=== PATIENT | female | born 1990 | race Caucasian/White ===

== ENCOUNTER 2017-08-24 09:37 | Emergency (ER) | payer MEDICAID ==
[2017-08-24] MEDS ORDERED: Sodium Chloride 0.9% 1,000 ML IV ONE (10:08)
[2017-08-24] MEDS ORDERED: Sodium Chloride 0.9% 10 ML Syringe FLUSH PRN (10:08)
[2017-08-24] MEDS ORDERED: Sodium Chloride 0.9% 2.5 ML Syringe FLUSH PRN (10:08)
--- NOTE | 2017-08-24 10:08 | EDM.PDOC ---
ED HPI GENERAL MEDICAL PROBLEM - General Chief Complaint: Abdominal Pain Stated Complaint: VAGINAL BLEEDING Time Seen by Provider: 08/24/17 10:04 Source of Information: Reports: Patient History Limitations: Reports: No Limitations - History of Present Illness INITIAL COMMENTS - FREE TEXT/NARRATIVE: HISTORY AND PHYSICAL: History of present illness: Anne is a 27-year-old female here with complaint of vaginal bleeding. Patient states that she hasn't had a period in years but 10 weeks ago took a test which was positive. She was schedule for a new OB appt with Arely Malcolm today but was rescheduled. She states that she started bleeding yesterday and having pelvic cramping. She states she has soaked through 10+ pads. She denies any fevers, chills, cough, chest pain, shortness of breath. Review of systems: As per history of present illness and below otherwise all systems reviewed and negative. Past medical history: As per history of present illness and as reviewed below otherwise noncontributory. Surgical history: As per history of present illness and as reviewed below otherwise noncontributory. Social history: No reported history of drug or alcohol abuse. Family history: As per history of present illness and as reviewed below otherwise noncontributory. Physical exam: General: Patient standing in room pacing but in no acute distress HEENT: Atraumatic, normocephalic, pupils reactive, negative for conjunctival pallor or scleral icterus, mucous membranes moist, throat clear, neck supple, nontender, trachea midline. Lungs: Clear to auscultation, breath sounds equal bilaterally, chest nontender. Heart: S1S2, regular, negative for clicks, rubs, or JVD. Abdomen: Moderated pain to palpation of the lower abdomen/pelvis. Soft, nondistended. No rebound tenderness. Negative for masses or hepatosplenomegaly. Negative for costovertebral tenderness. Genitourinary: OS is closed. There is blood on glove and a clear gel-like substance Neuro: Awake, alert, oriented. Cranial nerves II through XII unremarkable. Cerebellum unremarkable. Motor and sensory unremarkable throughout. Exam nonfocal. Notes: Diagnostics: CBC, CMP, UA, serum quantitative hcg Pelvic US Therapeutics: 1L Normal Saline IV Toradol 60mg IM Impression: Heavy menstrual bleeding UTI Plan: No documented positive hcg. Quant is negative today and no gestational sac on US. #1 Take antibiotic as directed for UTI #2 Follow up with accounts receivable representative #3 Return to ED as needed as discussed Definitive disposition and diagnosis as appropriate pending reevaluation and review of above. Abdominal Pain Score (Numeric/FACES): 6 - Related Data Allergies Allergy/AdvReac Type Severity Reaction Status Date / Time Penicillins Allergy Other Verified 08/24/17 10:13 Home Meds: Home Meds Nitrofurantoin Monohyd/M-Cryst [Macrobid 100 mg Capsule] 100 mg PO BID #14 capsule 08/24/17 [Rx] ED ROS GENERAL - Review of Systems Review Of Systems: ROS reveals no pertinent complaints other than HPI. ED EXAM, RENAL/ - Physical Exam Exam: See Below (see dictation) Course - Vital Signs Last Recorded V/S: Last Vital Signs Temp 36.6 C 08/24/17 10:13 Pulse 106 H 08/24/17 10:13 Resp 16 08/24/17 10:13 BP 126/99 H 08/24/17 10:13 Pulse Ox 98 08/24/17 10:13 - Orders/Labs/Meds Orders: Active Orders 24 hr Category Date Time Status ABO/RH TYPE [BBK] Stat Lab 08/24/17 12:14 Ordered HCG QUALITATIVE,URINE [URCHEM] Stat Lab 08/24/17 12:00 Ordered UA W/MICROSCOPIC [URIN] Stat Lab 08/24/17 12:00 Ordered Labs: Laboratory Tests 08/24/17 08/24/17 08/24/17 Range/Units 10:26 10:26 10:26 WBC 8.75 (4.0-11.0) K/uL RBC 4.58 (4.30-5.90) M/uL Hgb 13.7 (12.0-16.0) g/dL Hct 39.3 (36.0-46.0) % MCV 85.8 (80.0-98.0) fL MCH 29.9 (27.0-32.0) pg MCHC 34.9 (31.0-37.0) g/dL RDW Std Deviation 42.8 (28.0-62.0) fl RDW Coeff of Nigel 14 (11.0-15.0) % Plt Count 278 (150-400) K/uL MPV 9.20 (7.40-12.00) fL Neut % (Auto) 58.1 (48.0-80.0) % Lymph % (Auto) 28.9 (16.0-40.0) % [place] % (Auto) 11.9 (0.0-15.0) % Eos % (Auto) 0.9 (0.0-7.0) % Baso % (Auto) 0.2 (0.0-1.5) % Neut # (Auto) 5.1 (1.4-5.7) K/uL Lymph # (Auto) 2.5 H (0.6-2.4) K/uL [place] # (Auto) 1.0 H (0.0-0.8) K/uL Eos # (Auto) 0.1 (0.0-0.7) K/uL Baso # (Auto) 0.0 (0.0-0.1) K/uL Nucleated RBC % 0.0 /100WBC Nucleated RBCs # 0 K/uL Sodium 141 (136-145) mmol/L Potassium 3.6 (3.5-5.1) mmol/L Chloride 106 (98-107) mmol/L Carbon Dioxide 26.0 (21.0-32.0) mmol/L BUN 12 (7.0-18.0) mg/dL Creatinine 0.8 (0.6-1.0) mg/dL Est Cr Clr Drug Dosing 85.02 mL/min Estimated GFR (MDRD) > 60.0 ml/min Glucose 89 (74-106) mg/dL Calcium 9.3 (8.5-10.1) mg/dL Total Bilirubin 1.1 H (0.2-1.0) mg/dL AST 30 (15-37) IU/L ALT 45 (14-63) IU/L Alkaline Phosphatase 60 (46-116) U/L Total Protein 8.0 (6.4-8.2) g/dL Albumin 4.2 (3.4-5.0) g/dL Globulin 3.8 H (2.0-3.5) g/dL Albumin/Globulin Ratio 1.1 L (1.3-2.8) HCG, Quant < 1.0 mIU/mL Urine Color Urine Appearance Urine pH (5.0-8.0) Ur Specific [place] (1.001-1.035) Urine Protein (NEGATIVE) mg/dL Urine Glucose (UA) (NEGATIVE) mg/dL Urine Ketones (NEGATIVE) mg/dL Urine Occult Blood (NEGATIVE) Urine Nitrite (NEGATIVE) Urine Bilirubin (NEGATIVE) Urine Urobilinogen (<2.0) EU/dL Ur Leukocyte Esterase (NEGATIVE) Urine RBC (0-2/HPF) Urine WBC (0-5/HPF) Ur Epithelial Cells (NONE-FEW) Urine Bacteria (NEGATIVE) Urine HCG, Qual (NEGATIVE) 08/24/17 08/24/17 Range/Units 12:00 12:00 WBC (4.0-11.0) K/uL RBC (4.30-5.90) M/uL Hgb (12.0-16.0) g/dL Hct (36.0-46.0) % MCV (80.0-98.0) fL MCH (27.0-32.0) pg MCHC (31.0-37.0) g/dL RDW Std Deviation (28.0-62.0) fl RDW Coeff of Nigel (11.0-15.0) % Plt Count (150-400) K/uL MPV (7.40-12.00) fL Neut % (Auto) (48.0-80.0) % Lymph % (Auto) (16.0-40.0) % [place] % (Auto) (0.0-15.0) % Eos % (Auto) (0.0-7.0) % Baso % (Auto) (0.0-1.5) % Neut # (Auto) (1.4-5.7) K/uL Lymph # (Auto) (0.6-2.4) K/uL [place] # (Auto) (0.0-0.8) K/uL Eos # (Auto) (0.0-0.7) K/uL Baso # (Auto) (0.0-0.1) K/uL Nucleated RBC % /100WBC Nucleated RBCs # K/uL Sodium (136-145) mmol/L Potassium (3.5-5.1) mmol/L Chloride (98-107) mmol/L Carbon Dioxide (21.0-32.0) mmol/L BUN (7.0-18.0) mg/dL Creatinine (0.6-1.0) mg/dL Est Cr Clr Drug Dosing mL/min Estimated GFR (MDRD) ml/min Glucose (74-106) mg/dL Calcium (8.5-10.1) mg/dL Total Bilirubin (0.2-1.0) mg/dL AST (15-37) IU/L ALT (14-63) IU/L Alkaline Phosphatase (46-116) U/L Total Protein (6.4-8.2) g/dL Albumin (3.4-5.0) g/dL Globulin (2.0-3.5) g/dL Albumin/Globulin Ratio (1.3-2.8) HCG, Quant mIU/mL Urine Color YELLOW Urine Appearance CLEAR Urine pH 7.0 (5.0-8.0) Ur Specific [place] 1.020 (1.001-1.035) Urine Protein NEGATIVE (NEGATIVE) mg/dL Urine Glucose (UA) NEGATIVE (NEGATIVE) mg/dL Urine Ketones NEGATIVE (NEGATIVE) mg/dL Urine Occult Blood LARGE H (NEGATIVE) Urine Nitrite POSITIVE H (NEGATIVE) Urine Bilirubin NEGATIVE (NEGATIVE) Urine Urobilinogen 0.2 (<2.0) EU/dL Ur Leukocyte Esterase TRACE (NEGATIVE) Urine RBC 20-25 (0-2/HPF) Urine WBC 1-3 (0-5/HPF) Ur Epithelial Cells FEW (NONE-FEW) Urine Bacteria 1+ H (NEGATIVE) Urine HCG, Qual NEGATIVE (NEGATIVE) Meds: Medications Discontinued Medications Generic Name Dose Route Start Last Admin Trade Name Freq PRN Reason Stop Dose Admin Sodium Chloride 1,000 mls @ 999 mls/hr 08/24/17 10:08 08/24/17 11:07 Normal Saline IV 08/24/17 11:08 Not Given STAT ONE Ketorolac Tromethamine 60 mg 08/24/17 12:03 08/24/17 12:11 Toradol IM 08/24/17 12:04 60 mg ONETIME ONE Administration Sodium Chloride 10 ml 08/24/17 10:08 08/24/17 12:12 Saline Flush FLUSH 10 ml ASDIRECTED PRN Administration Keep Vein Open Sodium Chloride 2.5 ml 08/24/17 10:08 08/24/17 12:13 Saline Flush FLUSH 2.5 ml ASDIRECTED PRN Administration Keep Vein Open Departure - Departure Time of Disposition: 12:32 Disposition: Home, Self-Care 01 Condition: Good Clinical Impression: UTI (urinary tract infection), Menorrhagia - Discharge Information Referrals: PCP,None [Primary Care Provider] - Forms: ED Department Discharge Additional Instructions: The following information is given to patients seen in the emergency department who are being discharged to home. This information is to outline your options for follow-up care. We provide all patients seen in our emergency department with a follow-up referral. The need for follow-up, as well as the timing and circumstances, are variable depending upon the specifics of your emergency department visit. If you don't have a primary care physician on staff, we will provide you with a referral. We always advise you to contact your personal physician following an emergency department visit to inform them of the circumstance of the visit and for follow-up with them and/or the need for any referrals to a consulting specialist. The emergency department will also refer you to a specialist when appropriate. This referral assures that you have the opportunity for follow-up care with a specialist. All of these measure are taken in an effort to provide you with optimal care, which includes your follow-up. Under all circumstances we always encourage you to contact your private physician who remains a resource for coordinating your care. When calling for follow-up care, please make the office aware that this follow-up is from your recent emergency room visit. If for any reason you are refused follow-up, please contact the [facility] Emergency Department at and asked to speak to the emergency department charge nurse. [facility] [address] [place] [id number] #1 Take antibiotic as directed for UTI #2 Follow up with accounts receivable representative #3 Return to ED as needed as discussed - My Orders Last 24 Hours: My Active Orders 08/24/17 12:00 HCG QUALITATIVE,URINE [URCHEM] Stat UA W/MICROSCOPIC [URIN] Stat 08/24/17 12:14 ABO/RH TYPE [BBK] Stat - Assessment/Plan Last 24 Hours: My Active Orders 08/24/17 12:00 HCG QUALITATIVE,URINE [URCHEM] Stat UA W/MICROSCOPIC [URIN] Stat 08/24/17 12:14 ABO/RH TYPE [BBK] Stat
[2017-08-24 11:01] LABS: CHLORIDE,CL 106 mmol/L (98-107); SODIUM,NA 141 mmol/L (136-145)
[2017-08-24] MEDS ORDERED: Ketorolac 60 MG/2 ML SDV IM ONE (12:03)
--- NOTE | 2017-08-24 12:21 | US ---
EXAMINATION: Transvaginal obstetric ultrasound HISTORY: Bleeding COMPARISON: None TECHNIQUE: Grayscale, color Doppler, and spectral Doppler imaging obtained. FINDINGS: The uterus is normal in size, contour, and echogenicity without a focal uterine mass. No ge stational sac identified. The endometrial stripe thickness is normal. Both the left and right ovaries are normal in size, contour, and echogenicity demonstrating normal co siddharth and spectral Doppler flow. Small follicles demonstrated. IMPRESSION: 1. No intrauterine gestational sac identified. Otherwise unremarkable transvaginal pelvic ultrasound. Correlate with beta hCG.
== END 2017-08-24 12:39 | disposition home or self-care (01) ==
LOC: MW.ED 09:37
DX: N92.0 Excessive and frequent menstruation with regular cycle (principal); N39.0 Urinary tract infection, site not specified; Z88.0 Allergy status to penicillin
CPT/HCPCS: 36415; 76817; 80053; 81001; 81025; 84702; 85025; 96372; 99284; J1885